=== PATIENT | male | born 1970 | race Hispanic/Latino ===

== ENCOUNTER 2018-04-29 13:59 | Emergency (ER) | payer OTHER ==
[~2018-04-29] VITALS: Ht 177.8 cm; Wt 104.3 kg
[2018-04-29] MEDS ORDERED: ONDANSETRON HCL INJ 2 MG/ML VIAL IV STA (14:18)
[2018-04-29] MEDS ORDERED: SODIUM CHLORIDE 0.9% 1000ML 1,000 ML IV SCH (16:45)
[2018-04-29 16:47] VITALS: BP 138/73
== END 2018-04-29 16:50 | disposition home or self-care (01) ==
LOC: FSED 13:59
DX: R10.32 Left lower quadrant pain (principal); R11.0 Nausea; K57.92 Diverticulitis of intestine, part unspecified, without perforation or abscess without bleeding
CPT/HCPCS: 74177; 80053; 85025; 96374; 99284; J2405

== ENCOUNTER 2019-06-07 06:52 | Emergency (ER) | payer OTHER ==
[~2019-06-07] VITALS: Ht 177.8 cm; Wt 104.3 kg
--- OUTSIDE RECORDS SUMMARY | 2019-06-07 06:54 | XMS REPORT | Clinical Summary ---
Author Author [facility] Organization [facility] Address Unknown Phone Unavailable Care Team Providers Care Underwriting Director Name Role Phone Carlos Niño MD PCP Allergies Comments Active Allergy Reactions Severity Noted Date Penicillins Rash Low 04/26/2018 Medications End Date Status Medication Sig Dispensed Refills Start Date 04/26/2019 meloxicam (MOBIC) 15 mg Take 1 tablet 30 tablet 2 tablet (15 mg total) 8 by mouth daily. Active Problems Problem Noted Date Arthritis 04/26/2018 Gastroesophageal reflux disease 04/26/2018 Mixed hyperlipidemia 04/26/2018 Libido, decreased 04/26/2018 Snoring 04/26/2018 BMI 32.0-32.9,adult 04/26/2018 Nocturia 04/26/2018 Lichen planus 04/26/2018 Chronic midline thoracic back pain 04/26/2018 Chronic midline low back pain without sciatica 04/26/2018 Diverticulosis of large intestine without hemorrhage 04/26/2018 Fatty liver 04/26/2018 Family History Medical History Relation Name Comments Diabetes Father Diabetes Mother Heart disease Mother Relation Name Status Comments Father (Age 57) Mother Alive Social History Date Tobacco Use Types Packs/Day Years Used Never Smoker Smokeless Tobacco: Never Used Drinks/Week oz/Week Comments Alcohol Use occassionally Yes Sex Assigned at Date Recorded Not on file Industry Job Start Date Occupation Not on file Not on file Not on file Travel End Travel History Travel Start No recent travel history available. Last Filed Vital Signs Not on file Plan of Treatment Health Maintenance Due Date Last Done Comments INFLUENZA VACCINE 05/17/2019 Results Not on fileafter 06/06/2018 Insurance Type Payer Benefit Subscriber ID Effective Phone Address Plan / Dates Group HMO/PPO [facility] xxxxxxxxx 2017-P THCARE resent CHOICE/CHO ICE + Advance Directives For more information, please contact: [phone] Patient Maintenance Scheduler Explanation Type Date Recorded Advance Directives, Living Will and Medical Power of Counselor Dormitory
[2019-06-07] MEDS ORDERED: FAMOTIDINE 20 MG/2 ML VIAL IV ONE ×2 (07:15→07:30)
[2019-06-07] MEDS ORDERED: METRONIDAZOLE 500MG/NS 100ML 100 ML IV ONE ×2 (07:15→07:30)
[2019-06-07] MEDS ORDERED: ONDANSETRON HCL INJ 2MG/ML 2ML 2 MG/ML VIAL IV ONE (07:15)
[2019-06-07] MEDS ORDERED: IOPAMIDOL 370 MG/ML 200 ML INFUS..BTL INJ ONE (07:28)
[2019-06-07] MEDS ORDERED: SODIUM CHLORIDE 0.9% 50ML 50 ML ONE (07:29)
[2019-06-07] MEDS ORDERED: ONDANSETRON HCL INJ 2MG/ML 2ML 2 MG/ML VIAL ONE (07:29)
[2019-06-07] MEDS ORDERED: LEVOFLOXACIN 500MG/D5W 100ML 0 ML IV ONE (07:35)
[2019-06-07] MEDS: LEVOFLOXACIN 500 MG TAB PO ONE ×2 (08:15→08:33)
[2019-06-07] MEDS ORDERED: CIPROFLOXACIN 500 MG TAB ONE (08:17)
[2019-06-07] MEDS ORDERED: CIPROFLOXACIN 500 MG TAB PO ONE (08:30)
--- NOTE | 2019-06-07 09:35 | Diagnostic Imaging Report ---
Exam: CT abdomen and pelvis Clinical history: Left lower quadrant pain Technique: Helical images of the abdomen and pelvis were obtained after IV contrast administration Findings: The lung bases are clear. There is no evidence of pleural effusion. The cardiac size is within normal limits. The liver, spleen, pancreas, gallbladder, adrenal glands, and kidneys are unremarkable. The small and large bowels are normal in caliber without evidence of obstruction. The appendix is visualized and within normal limits. Stranding is noted in the region of the distal descending colon most compatible with acute diverticulitis. There is no evidence of free fluid or free air to suggest perforation or abscess formation. The bladder, prostate, and seminal vesicles are within normal limits. There is no evidence of lymphadenopathy or free fluid. The aorta and IVC are normal in caliber. Impression: 1. Inflammatory changes in the region of the distal descending colon most consistent with early diverticulitis. Signed by: Dr. Arnaud Watkins MD on 06/07/2019 9:32 AM
[2019-06-07 09:44] VITALS: BP 141/70
== END 2019-06-07 09:47 | disposition home or self-care (01) ==
LOC: FSED 06:52
DX: K57.32 Diverticulitis of large intestine without perforation or abscess without bleeding (principal)
CPT/HCPCS: 74177; 80053; 81003; 85025; 99284; J2405; Q9967; J1956